=== PATIENT | male | born 1945 | race Caucasian/White ===

== ENCOUNTER 2017-09-13 01:47 | Inpatient (IN) | payer OTHER ==
[~2017-09-13] VITALS: Ht 157.5 cm; Wt 68.0 kg
[~2017-09-13 01:47] MED LIST: AMIODARONE HCL200 M2 PO; AMLODIPINE BESY10 M1 PO; ATORVASTATIN CA40 M1 PO; CLOPIDOGREL75 M1 PO; DENAVIR5 GM TOP; DOXYCYCLINE HY100 M2 PO; DOXYCYCLINE HY100 M4 PO; ENALAPRIL MALEA20 M1 PO; METOPROLOL SUC100 M2 PO; PRADAXA150 M1 PO; PREDNISONE10 M2 PO; PROAIR HFA8.5 GM; ZITHROMAX250 M2 PO
--- NOTE | 2017-09-13 02:00 | ED DYSPNEA/ASTHMA COMPLAINT ---
History of Present Illness General Chief Complaint: Dyspnea (COPD, CHF, Other) Stated Complaint: DYSPNEA Source: patient, old records, EMS Exam Limitations: no limitations Vital Signs & Intake/Output Vital Signs & Intake/Output Vital Signs Date Time Temp Pulse Resp B/P B/P Pulse O2 O2 Flow FiO2 Mean Ox Delivery Rate 09/13 0238 Nasal 2.0L Cannula 09/13 0204 88 Nasal 3.0L Cannula 09/13 0158 97.3 53 24 173/72 95 Nasal 3.5L Cannula Allergies Coded Allergies: Sulfa (Sulfonamide Antibiotics) (HIVES 09/11/17) Reconcile Medications Albuterol Sulfate (Proair Hfa) (Unknown Strength) HFA.AER.AD (Unknown Dose) UNKNOWN (Reported) Amiodarone HCl 200 MG TABLET 1 TAB PO DAILY HEART (Reported) Amlodipine Besylate 10 MG TABLET 1 TAB PO DAILY BP (Reported) Atorvastatin Calcium 40 MG TABLET 1 TAB PO DAILY CHOLESTEROL (Reported) Azithromycin (Zithromax) 250 MG TABLET 1 DP PO AD BRONCHITIS 2 the first day followed by 1 for days 2-5 Clopidogrel Bisulfate (Clopidogrel) 75 MG TABLET 1 TAB PO DAILY BLOOD THINNER (Reported) Dabigatran Etexilate Mesylate (Pradaxa 150 MG) 150 MG CAPSULE 1 CAP PO BID BLOOD THINNER (Reported) Doxycycline Hyclate 100 MG CAPSULE 1 CAP PO BID ANTIBIOTIC (Reported) Doxycycline Hyclate (Unknown Strength) TABLET (Unknown Dose) PO AD ANTIBIOTIC (Reported) Enalapril Maleate 20 MG TABLET 1 TAB PO DAILY BP (Reported) Metoprolol Succinate 100 MG TAB.ER.24H 1 TAB PO DAILY HEART/BP (Reported) Penciclovir (Denavir) 1 % CREAM..G. 1 KALLIE TOP AD ANTIVIRAL (Reported) Prednisone 10 MG TABLET 1 TAB PO DAILY BRONCHITIS TAKE 3 TABS FOR 3 DAYS THEN TAKE 2 TABS FOR 3 DAYS THEN TAKE 1 TAB FOR 3 DAYS Triage Nurses Notes Reviewed? yes Onset: Gradual Duration: day(s): Timing: recent history Severity: moderate Activities at Onset: none Prior Episodes/Possible Cause: occasional episodes Modifying Factors: Improves With: rest. Associated Symptoms: cough, wheezing HPI: 72 yo gentleman h/o cigarette smoking, h/o [place], vasculopthy, presents with dyspnea. He was seen in the ED 2 days ago, was given steroids and zithromycin. He was unable to fill the antiobiotics, but was able to take the steroids. He notes that for the past day, he has had increased dyspnea, wheezing, breathlessness, with sputum for the past evening, which got worse tonight. Past History Travel History Traveled to [place] past 21 day No Medical History Any Pertinent Medical History? 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 No Review of Systems Review of Systems Constitutional: Reports: no symptoms. EENTM: Reports: no symptoms. Respiratory: Reports: no symptoms. Cardiovascular: Reports: no symptoms. GI: Reports: no symptoms. Genitourinary: Reports: no symptoms. Musculoskeletal: Reports: no symptoms. Skin: Reports: no symptoms. Neurological/Psychological: Reports: no symptoms. Hematologic/Endocrine: Reports: no symptoms. Immunologic/Allergic: Reports: no symptoms. All Other Systems: Reviewed and Negative Physical Exam Physical Exam General Appearance: well developed/nourished, mild distress Head: atraumatic, normal appearance Eyes: Bilateral: normal appearance. Ears, Nose, Throat: normal pharynx, normal ENT inspection Neck: normal inspection, supple, full range of motion Respiratory: wheezing Cardiovascular: regular rate/rhythm Gastrointestinal: normal bowel sounds, soft, non-tender, no organomegaly Extremities: normal inspection, normal capillary refill, normal range of motion, no edema Neurologic/Psych: no motor/sensory deficits, awake, alert, oriented x 3 Skin: intact, normal color, warm/dry Core Measures ACS in differential dx? Yes No ASA d/t pt written for aspirin CVA/TIA Diagnosis No Sepsis Present: No Sepsis Focused Exam Completed? No Progress Differential Diagnosis: asthma, AMI Plan of Care: Orders Procedure Date/time Status Nothing by Mouth 09/13 B Active Saline Lock 09/13 327 Active Misc Message 09/13 327 Active ED Holding Orders 09/13 327 Active Admit to inpatient 09/13 327 Active Vital Signs 09/13 327 Active Code Status 09/13 327 Active RAPID VIRAL INFLUENZA A 09/13 200 Active BLOOD CULTURE 09/13 199 Active TROPONIN LEVEL 09/13 199 Complete PARTIAL THROMBOPLASTIN TIME 09/13 199 Complete PROTHROMBIN TIME 09/13 199 Complete COMPREHENSIVE METABOLIC PANEL 09/13 199 Complete CBC WITHOUT DIFFERENTIAL 09/13 199 Complete B-TYPE NATRIURETIC PEP (BNP) 09/13 199 Complete EKG 09/13 148 Active Current Medications Sig/Sameera Start time Last Medication Dose Stop Time Status Admin Furosemide 20 MG ONCE ONE 09/13 329 CANr (Lasix) 09/13 330 Furosemide 20 MG ONCE ONE 09/13 329 UNVr (Lasix) 09/13 330 Laboratory Tests 09/13/17208: Anion Gap 13, Estimated GFR 35 L, BUN/Creatinine Ratio 19.5, Glucose 96, Calcium 9.3, Total Bilirubin 0.8, AST 33, ALT 34, Alkaline Phosphatase 114, Troponin I 0.03, Hiq-G-Rlfpmwpgnyz Pept 4530 H, Total Protein 7.7, Albumin 4.1, Globulin 3.6, Albumin/Globulin Ratio 1.1, PT 17.8 H, INR 1.70 H, APTT 75 H, CBC w Diff NO MAN DIFF REQ, RBC 4.35 L, MCV 93.2, MCH 31.5 H, RDW 15.1 H, MPV 8.8, Gran % 73.2, Lymphocytes % 14.6 L, Monocytes % 8.9, Eosinophils % 1.9, Basophils % 1.4, Absolute Granulocytes 8.1 H, Absolute Lymphocytes 1.6, Absolute Monocytes 1.0 H, Absolute Eosinophils 0.2, Absolute Basophils 0.2, PUBS MCHC 33.8 Microbiology 09/13 258 BLOOD: Blood Culture - RECD 09/13 225 BLOOD: Blood Culture - RECD 09/13 200 NASOPHARYN: Influenza Virus A & B Rapid Smear - ORD Diagnostic Imaging: Viewed by Me: Radiology Read. Discussed w/RAD: Radiology Read. CXR Impression: PATIENT: SUNITHA MARIE PRESENT AGE: 72 PATIENT ACCOUNT NO: [id number] : 44 LOCATION: [facility] ORDERING PHYSICIAN: Marvin Martines MD SERVICE DATE: 09/13/17 EXAM TYPE: RAD - XRY- PORTABLE CHEST XRAY EXAMINATION: XR PORTABLE CHEST CLINICAL INFORMATION: Dyspnea COMPARISON: 09/11/2017 TECHNIQUE: Portable frontal view of the chest was obtained. FINDINGS: Lung volumes are symmetric. There is redemonstrated interstitial prominence and Sia B-lines, suspicious for interstitial edema which is similar in appearance to prior. No definite consolidation is identified. No pneumothorax is seen. Trace pleural effusions cannot be excluded. The cardiac silhouette remains prominent. Calcification is present at the aortic arch. No acute osseous findings are seen. IMPRESSION: Findings suspicious for interstitial edema, similar to 09/11/2017. DICTATED BY: Rik Molina MD DATE/ TIME DICTATED:09/13/17308 WASHATERIA ATTENDANT:ALYSON DATE/TIME TRANSCRIBED: 09/13/17308 CONFIDENTIAL, DO NOT COPY WITHOUT APPROPRIATE AUTHORIZATION. < Electronically signed in Other Vendor System> SIGNED BY: Rik Molina MD 09/13/17313 Initial ED EKG: non specific t wave changes. Departure Departure Disposition: STILL A PATIENT Condition: Stable Clinical Impression Primary Impression: COPD exacerbation Secondary Impressions: Chest pain, CHF (congestive heart failure) Referrals: Ricky Bradley MD (PCP/Family) Departure Forms: Customer Survey General Discharge Information Admission Note Spoke With: Nieves Peoples MD Documentation of Exam: Documentation of any treatments & extenuating circumstances including Concerns Regarding Discharge (functional status, medication knowledge or non-compliance, living conditions, etc.) that warrant an admission rather than observation: pt with copd, pneumonia, unstable angina vs other... pt hypoxic upon presentation, unsuccessful with outpatient management.... merits iv abx, iv steroids, nebs... pt's presentation is more consistent with copd than chf... however given elevated bnp and edema on cxr, will give lasix x1 and have team re -assess. Critical Care Note Critical Care Note Critical Care Time: non-applicable
[2017-09-13 02:16] LABS: ABSOLUTE BASOPHIL COUNT 0.2 /CUMM (0.0-0.2); ABSOLUTE EOSINOPHIL COUNT 0.2 /CUMM (0.0-0.7); ABSOLUTE GRANULOCYTE CT 8.1 /CUMM (1.4-6.5); ABSOLUTE LYMPH COUNT 1.6 /CUMM (1.2-3.4); BASOPHIL % 1.4 % (0.0-2.0); EOSINOPHIL % 1.9 % (0-5); GRANULOCYTE % 73.2 % (42.2-75.2); HEMATOCRIT 40.6 % (42-52); MEAN CORPUSCULAR HGB 31.5 PG (27.0-31.0); MEAN CORPUSCULAR HGB CONC 33.8 G/DL (33.0-37.0); MEAN CORPUSCULAR VOLUME 93.2 FL (80.0-94.0); MEAN PLATELET VOLUME 8.8 FL (7.4-10.4); PLATELET COUNT 339 /CUMM (130-400); RBC DISTRIBUTION WIDTH 15.1 % (11.5-14.5); RED BLOOD CELL CT 4.35 /CUMM (4.70-6.10); WHITE BLOOD CELL COUNT 11.1 /CUMM (4.8-10.8)
[2017-09-13 02:31] LABS: PT 17.8 SEC (9.4-12.5); PTT 75 SEC (25-37)
--- NOTE | 2017-09-13 03:14 | RADIOLOGY REPORT ---
EXAMINATION: XR PORTABLE CHEST CLINICAL INFORMATION: Dyspnea COMPARISON: 09/11/2017 TECHNIQUE: Portable frontal view of the chest was obtained. FINDINGS: Lung volumes are symmetric. There is redemonstrated interstitial prominence and Sia B-lines, suspicious for interstitial edema which is similar in appearance to prior. No definite consolidation is identified. No pneumothorax is seen. Trace pleural effusions cannot be excluded. The cardiac silhouette remains prominent. Calcification is present at the aortic arch. No acute osseous findings are seen. IMPRESSION: Findings suspicious for interstitial edema, similar to 09/11/2017.
--- NOTE | 2017-09-13 05:04 | History & Physical ---
John STROUD,[facility] 09/13/17 0504: General Information and HPI MD Statement: I have seen and personally examined SUNITHA MARIE and documented this H&P. The patient is a 72 year old M who presented with a patient stated chief complaint of [worsening cough and shortness of breath]. Source of Information: patient Exam Limitations: poor historian History of Present Illness: Mr. marie is a 72-year-old gentleman with past medical history significant for hypertension, hyperlipidemia, peripheral vascular disease s/p angiography and left sided stent pleacement, subclavian stents, carotid endarterectomy(right side 2000, left side 2015), [place] status post CABG stent placement, COPD(not on home oxygen) and atrial fibrillation(on aspirin and Plavix) presents to the [place] ER with worsening cough and shortness of breath. According to the patient, she has had chronic shortness of breath that has been going on for couple of months but has worsened recently, states he feels chest tightness and feels like he is unable to breathe, along with worsening cough and sputum production. He was seen in the ER on September 11 for similar symptoms and was discharged home on prednisone and antibiotics which she has been taking without any relief. Denies any fever but have occasional chills. Also reports occasional palpitations but denies any chest pain, orthopnea, PND, worsening leg swelling or recent increase in body weight. Patient had an extensive workup done at [facility] for shortness of breath and also peripheral vascular disease in April 2017. Allergies/Medications Allergies: Coded Allergies: Sulfa (Sulfonamide Antibiotics) (HIVES 09/11/17) Home Med list Amiodarone HCl 200 MG TABLET 1 TAB PO DAILY HEART (Reported) Amlodipine Besylate 10 MG TABLET 1 TAB PO DAILY BP (Reported) Atorvastatin Calcium 40 MG TABLET 1 TAB PO DAILY CHOLESTEROL (Reported) Dabigatran Etexilate Mesylate (Pradaxa 150 MG) 150 MG CAPSULE 1 CAP PO BID BLOOD THINNER (Reported) Enalapril Maleate 20 MG TABLET 1 TAB PO DAILY BP (Reported) Metoprolol Succinate 100 MG TAB.ER.24H 1 TAB PO DAILY HEART/BP (Reported) Past History Travel History Traveled to [place] past 21 day No Medical History Neurological: NONE EENT: NONE Cardiovascular: AFIB, CAD, hypertension, hyperlipidemia, PVD, [place]/STENTS Respiratory: COPD Gastrointestinal: HERNIA Hepatic: NONE Renal: NONE Musculoskeletal: NONE Psychiatric: NONE Endocrine: NONE Blood Disorders: NONE Cancer(s): NONE 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 Home Who Do You Live With? spouse Smoking Status: Current Everyday Smoker ETOH Use: occasional use Illicit Drug Use: denies illicit drug use Functional Ability ADLs Independent: dressing, eating, toileting, bathing. Ambulation: independent Review of Systems Review of Systems Constitutional: Reports: no symptoms. EENTM: Reports: no symptoms. Cardiovascular: Reports: no symptoms. Respiratory: Reports: cough, short of breath, sputum production. GI: Reports: no symptoms. Genitourinary: Reports: no symptoms. Musculoskeletal: Reports: no symptoms. Skin: Reports: no symptoms. Neurological/Psychological: Reports: no symptoms. Hematologic/Endocrine: Reports: no symptoms. Immunologic/Allergic: Reports: no symptoms. All Other Systems: Reviewed and Negative Exam & Diagnostic Data Last 24 Hrs of Vital Signs/I&O Vital Signs Date Time Temp Pulse Resp B/P B/P Pulse O2 O2 Flow FiO2 Mean Ox Delivery Rate 09/13 0330 97.8 54 20 130/58 93 Nasal 4.0L Cannula 09/13 0238 Nasal 2.0L Cannula 09/13 0204 88 Nasal 3.0L Cannula 09/13 0158 97.3 53 24 173/72 95 Nasal 3.5L Cannula Intake & Output 09/13 0800 09/13 0000 09/12 1600 Intake Total Output Total Balance Patient 150 lb Weight Weight Reported by Patient Measurement Method Physical Exam General Appearance Alert, Oriented X3, Cooperative, No Acute Distress Skin No Rashes, No Breakdown HEENT Atraumatic, PERRLA, EOMI Neck Supple, No thryomegaly, +ve JVD Cardiovascular Regular Rate, Normal S1, Normal S2, Bradycardic Lungs Wheezing over bilateral lung graf Abdomen Normal Bowel Sounds, Soft, No Tenderness, Umbilical Hernia Extremities No Clubbing, No Cyanosis, Normal Pulses, Bilateral +2 pitting edema extending up the knees Vascular Normal Pulses Last 24 Hrs of Labs/Aureliano: Laboratory Tests 09/13/17 0209: Anion Gap 13, Estimated GFR 35 L, BUN/Creatinine Ratio 19.5, Glucose 96, Calcium 9.3, Total Bilirubin 0.8, AST 33, ALT 34, Alkaline Phosphatase 114, Troponin I 0.03, Prk-V-Xjmxlmczfpo Pept 4530 H, Total Protein 7.7, Albumin 4.1, Globulin 3.6, Albumin/Globulin Ratio 1.1, PT 17.8 H, INR 1.70 H, APTT 75 H, CBC w Diff NO MAN DIFF REQ, RBC 4.35 L, MCV 93.2, MCH 31.5 H, RDW 15.1 H, MPV 8.8, Gran % 73.2, Lymphocytes % 14.6 L, Monocytes % 8.9, Eosinophils % 1.9, Basophils % 1.4, Absolute Granulocytes 8.1 H, Absolute Lymphocytes 1.6, Absolute Monocytes 1.0 H, Absolute Eosinophils 0.2, Absolute Basophils 0.2, PUBS MCHC 33.8 Microbiology 09/13 258 BLOOD: Blood Culture - RECD 09/13 225 BLOOD: Blood Culture - RECD 09/13 200 NASOPHARYN: Influenza Virus A & B Rapid Smear - ORD Diagnostic Data EKG Results Sinus bradycardia Heart rate 52 QTC 469 CXR Results Lung volumes are symmetric. There is redemonstrated interstitial prominence and Sia B-lines, suspicious for interstitial edema which is similar in appearance to prior. No definite consolidation is identified. No pneumothorax is seen. Trace pleural effusions cannot be excluded. Assessment/Plan Assessment: Mr. marie is a 72-year-old gentleman with past medical history significant for hypertension, hyperlipidemia, peripheral vascular disease, subclavian stents, carotid endarterectomy(right side 2000, left side 2015), [place] status post CABG stent placement, COPD(not on home oxygen) and atrial fibrillation(on aspirin and Plavix) presents to the [place] ER with worsening cough and shortness of breath. A/P; 1. Shortness of breath; could be multifactorial from CHF(patient has a proBNP level of 4530, positive JVD and chest x-ray showing interstitial edema) and COPD Exacerbation(current everyday smoker, wheezing on examination and worsening cough with sputum production). - We will admit the patient to telemetry floor - Start the patient on IV Solu-Medrol 40 mg every 12 hours. - Start the patient on IV azithromycin. - TRC nebs as needed - Supplemental oxygen as needed. -Patient received 1 dose of IV Lasix 20 mg in the ER. Patient has a creatinine level of 1.9(unsure about baseline creatinine). Reassess creatinine in a.m. for continuing IV Lasix. - f/u Echocardiogram - Cardiology consult in a.m. 2. Creatine level of 1.9; Had same creatinine level on September 11. - Resume Lasix in a.m. if no worsening of creatinine on repeated labs. - Urine lytes and FeNa. - Hold enalapril - Avoid nephrotoxic medications. 3. History of atrial fibrillation; - Continue amiodarone. - Hold metoprolol for now. (Patient bradycardic to 52) - Continue aspirin and Pradaxa. - Cardiology consult in a.m. 4. Hypertension and hyperlipidemia; - Holding metoprolol and enalapril for now because of bradycardia and abnormal creatinine levels respectively. - Continue amlodipine. - Continue atorvastatin 40 mg daily. DVT prophylaxis; patient is on Pradaxa Patient is full code As Ranked By This Provider Problem List: 1. COPD exacerbation 2. Dyspnea 3. CHF (congestive heart failure) Core Measures/Misc (05/09) Acute Coronary Syndrome ACS Diagnosis: No Congestive Heart Failure Congestive Heart Failure Diagnosis Yes Cerebrovascular Accident CVA/TIA Diagnosis: No VTE (View Protocol) VTE Risk Factors Age>40 No Mechanical VTE Prophylaxis d/t N/A MechProphylax Ordered No VTE Pharm Prophylaxis d/t NA PharmProphylax ordered Sepsis (View protocol) Sepsis Present: No Nani Perez MD 09/13/17 0610: Resident Review Statement Resident Statement: examined this patient, discussed with industrial design intern, agreed with industrial design intern Other Findings: This is a 71-year-old male w/ PMH significant for CAD status post FL at age 39, with history of bypass and stents, vasculopathy status post right lower extremity stent and bilateral CEA, atrial fibrillation on NOAC, hypertension, and hyperlipidemia, who comes in for chief complaint of shortness of breath. Patient has a difficult time his acute from his chronic symptoms. However, he states that the last 1 week he seems to notice worsening shortness of breath, cough and congestion. He was seen in [place] ED on September 11 after going to [facility]'s walk-in and found to be with low O2 sat (he is unaware of value), and was sent to [facility] ED for further evaluation. Here he was found to have an ambulatory saturation of 92 with some shortness of breath he was prescribed antibiotics and steroids and discharged. He stated his pharmacy did not have prednisone but he has finished a one-week course of amoxicillin previously prescribed by his PCP but his symptoms have not improved. He still wakes up gasping for air. He sleeps with one pillow at night, he has not added any more, however he states his symptoms improved with sitting. He also endorses chest tightness for 1 week. He says it's more of a pressure sensation in the center of his chest. He also notes worsening exertional dyspnea and intermittent palpitations. Last Wednesday he describes an episode where he suddenly lost hearing, experienced nausea and had an episode of intense shortness of breath. He says that episode scared him and subsequently he has been seeking medical care for his shortness of breath. On further history, he states that he has noted worsening dyspnea, decreased endurance, and increasing shortness of breath since last April. Over the last week his cough congestion and shortness of breath seems different from his chronic symptoms. Social history significant for 45-pyns-oyof smoking, he still currently smokes up to 15 cigarettes a day. He endorses rare recreational use of alcohol and no IV drug abuse. 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 Vitals: 97.3, heart rate 53-54, respiratory rate 20-24, blood pressure 130/58 to 173/72, satting 88-95%. HEENT: Pupils equal and reactive. EOMI Cardiovascular: Nml s1/s2; no murmurs, bradycardia. No S3 appreciated. +JVD Skin: no erythema, rash or wounds present. Respiratory:He had diminished breath sounds with slight wheezes at bases. There were some crackles and rhonchi present as well. GI: BSX4, No tenderness on palpation. EXT: 2+ pitting edema. he has healing ulcers on l. great toe. R. great toe with some chronic changes. Good palpable pulses bilat LE. Assessment: This is a 72-year-old male w/ past medical history significant for CAD, vasculopathy, atrial fibrillation, hypertension, hyperlipidemia, who comes in for a one-week complaint of shortness of breath, chest tightness, congestion and cough above his usual chronic shortness of breath and dyspnea on exertion. His x-ray shows evidence of Sia B lines, interstitial edema, he has positive JVD and crackles, and rhonchi in lungs. These are suggestive of heart failure. However, he does have significant smoking history and wheezes can be auscultated. Cannot rule out COPD. At this time will treat patient is a combination of CHF and COPD and given his prominent history of CAD will obtain EKG and trops as we monitor on telemetry floor. 1. Shortness of breath: Patient shortness of breath is likely multifactorial. It sounds like he has an acute on top of a chronic shortness of breath. Differential diagnosis favors acute shortness of breath includes worsening CHF, superimposed viral illness, COPD exacerbation. His chronic SOB could be 2/2 to HF, COPD, Amiodarone assoc pulm sfx. BNP 4530 * TRC * Steroids * Echocardiogram * Monitor on telemetry * EKG and troponins * Hold beta irene * 1 times Lasix in ED; reevaluate Lasix regimen given his creatinine * Flu swab 2. Bradycardia: as I was interviewing patient here heart rate as low as 48. His EKG shows NSR with rate 52. He was awake alert and speaking with me. He says he does not have a known history of bradycardia, rather he usually has fast heart rate. He is on a beta irene and amiodarone. * Holding beta irene * Continue amiodarone 3. Elevated creatinine: Unsure of his baseline so don't know if this is CLAUDIO or CK D. Note that on September 11 patient had creatinine of 1.9. Suspect chronic. * Urine lytes * FeNa * Hold lisinopril * Administer Lasix with caution * Avoid NSAIDs and nephrotoxins 4. Atrial Fibrillation: Patient is in NSR at this time. * Continue amiodarone * Continue Pradaxa 5. CAD: She has significant history of CAD and vasculopathy. * EKG and drops 3 * Continue Lipitor 40 mg daily * Holding Toprol-XL 100 mg daily 6. Hypertension: * Continue Vasotec * Continue Norvasc
--- NOTE | 2017-09-13 06:15 | PN- Att Addend ---
Attending Addendum Attending Brief Note CC: Acute worsening of shortness of breath PMH: CAD S/P [place] S/P CABG, S/P stent, peripheral vascular disease S/P angiography , bilateral CEA, A. fib, HTN, HLD Patient has extensive cardiac history and vasculopath presented in ER for worsening shortness of breath, cough. Patient was seen in ER on September 11, productive cough, worsening breathing, chest pain chest tightness. 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 Patient endorses significant leg swellings recently, lies down flat on one pillow but feels much better in the sitting position, making the middle of the night getting shortness of breath. is sick with URI. Extensive smoking history but never diagnosed to have COPD, does not use any nebulization her oxygen at home. In ER he was afebrile, pulse in 50s, her 20s, blood pressure stable saturating 95% on 3 L nasal cannula, coarse on auscultation with crackles, leg edema present, JVD present, mild wheezing present. Patient has mild leukocytosis, creatinine 1.9 no comparison, mildly elevated proBNP but again no comparison available, troponin 0.03. Chest x-ray suggestive of interstitial edema. Patient received IV 20 mg Lasix in ER, Solu- Medrol, nebulization treatment. It appears that patient has acute on chronic heart failure, underlying COPD with mild exacerbation precipitated by URI symptoms. + Acute on chronic congestive heart failure with unknown ejection fraction + Suspected COPD with exacerbation with URI + History of CAD S/P [place] S/P CABG, S/P stent, peripheral vascular disease S/P angiography, bilateral CEA, A. fib, HTN, HLD - Admit to telemetry - Continuous telemetry monitoring - Continue O2 by nasal cannula try to wean off - Repeat BMP in a.m. to reassess for IV Lasix - Strict I's and O's - Daily weights - Serial troponin and EKGs - 2-D echo in a.m. - Cardiology consult in a.m. - DVT prophylaxis - Hold metoprolol given his bradycardia - Continue rest of his home medications - Continue IV methylprednisolone 40 mg every 12 hours - IV azithromycin - Scheduled and when necessary nebulization with albuterol and ipratropium
--- NOTE | 2017-09-13 06:15 | Admission Certification ---
Admission Certification Certification Statement - As attending physician, I certify that at the time of - admission, based on clinical presentation, severity of - symptoms, need for further diagnostic testing and - therapeutic interventions, and risk of adverse outcomes - without in-hospital treatment, in my clinical assessment, - this patient requires an acute hospital stay for a minimum - of two nights or longer. I have also considered psychsocial - factors such as support system, advanced age, financial - issues, cognitive issues, and failed out-patient treatments, - past re-admission history, safety of patient, and lack of - compliance as applicable. Specific rationale supporting this admission is: Acute on chronic congestive heart failure, suspected COPD
[2017-09-13 06:38] VITALS: BP 106/50
--- NOTE | 2017-09-13 08:44 | PN- Housestaff ---
Jason Fam 09/13/17 0844: Subjective Follow-up For: Acute on chronic CHF COPD exacerbation Acute bronchitis AK I on CKD History of A. fib Complaints: no complaints Tele-Events Since Last Visit: No telemetry events noticeable. Atrial fibrillation, rate controlled, varying between 50-60, ventricular premature complexes Subjective: Patient was seen and examined. He is alert awake and oriented to time place and person. No acute events noticed overnight. He reports mild shortness of breath associated with cough. Denied any sputum production. No fever, chills. He denies any chest pain or tightness, palpitations, abdominal pain, nausea, vomiting or flank pain. Urine output was adequate. No urinary symptoms. Vitals stable, afebrile, heart rate 60, respiratory rate 18, blood pressure 120/ 70, saturating at 93 on 3 L. Review of Systems Constitutional: Reports: see HPI. Objective Last 24 Hrs of Vital Signs/I&O Vital Signs Date Time Temp Pulse Resp B/P B/P Pulse O2 O2 Flow FiO2 Mean Ox Delivery Rate 09/13 0935 65 114/56 09/13 0935 65 114/56 09/13 0800 92 Room Air Room Air 09/13 0638 97.8 77 18 106/50 94 Nasal 4.0L Cannula 09/13 0600 Nasal 4.0L Cannula 09/13 0534 97.1 50 20 127/71 93 Nasal 4.0L Cannula 09/13 0330 97.8 54 20 130/58 93 Nasal 4.0L Cannula 09/13 0238 Nasal 2.0L Cannula 09/13 0204 88 Nasal 3.0L Cannula 09/13 0158 97.3 53 24 173/72 95 Nasal 3.5L Cannula Intake & Output 09/13 1600 09/13 0800 09/13 0000 Intake Total Output Total 300 300 Balance -300 -300 Output, Urine 300 300 Patient 68.039 kg Weight Weight Reported by Patient Measurement Method Physical Exam General Appearance: Alert, Oriented X3, Cooperative, No Acute Distress Other Physical Findings: HEENT: Pupils equal and reactive. EOMI Cardiovascular: Nml s1/s2; no murmurs, bradycardia. No S3 appreciated. +JVD Skin: no erythema, rash or wounds present. Respiratory:He had diminished breath sounds with slight wheezes at bases. There were some crackles and rhonchi present as well. GI: BSX4, No tenderness on palpation. EXT: 2+ pitting edema. he has healing ulcers on l. great toe. R. great toe with some chronic changes. Good palpable pulses bilat LE. Current Medications: Current Medications Sig/Sameera Start time Last Medication Dose Route Stop Time Status Admin Acetaminophen 650 MG Q6P PRN 09/13 0545 AC PO Acetaminophen 1,000 MG Q6P PRN 09/13 0545 AC IV Albuterol Sulfate 3 ML ONCE ONE 09/13 0200 DC 09/13 INH 09/13 020 0203 Amiodarone HCl 200 MG DAILY 09/13 1000 AC 09/13 PO 0935 Amlodipine Besylate 10 MG DAILY 09/13 1000 AC 09/13 PO 0935 Aspirin 81 MG ONCE ONE 09/13 0345 DC 09/13 PO 09/13 034 0342 Aspirin 0 .STK-MED ONE 09/13 0339 DC PO Atorvastatin Calcium 40 MG 1700 09/13 1700 AC PO Azithromycin 500 MG DAILY 09/13 1000 AC Dextrose/Water 250 ML IV Azithromycin 500 MG ONCE ONE 09/13 0200 DC 09/13 Sodium Chloride 250 ML IV 09/13 025 0310 Ceftriaxone Sodium 0 .STK-MED ONE 09/13 0252 DC .ROUTE Ceftriaxone Sodium 1,000 MG ONCE ONE 09/13 0200 DC 09/13 IV 09/13 020 0309 Dabigatran 150 MG BID 09/13 1000 AC 09/13 PO 0934 Furosemide 20 MG DAILY 09/13 1000 AC PO Furosemide 0 .STK-MED ONE 09/13 0338 DC IV Furosemide 20 MG ONCE ONE 09/13 0330 CAN IV 09/13 0331 Furosemide 20 MG ONCE ONE 09/13 0330 DC 09/13 IV 09/13 033 0342 Ipratropium Jarrell 2.5 ML ONCE ONE 09/13 0200 DC 09/13 INH 09/13 020 0203 Methylprednisolone 40 MG Q8 09/13 1400 AC IV Methylprednisolone 40 MG Q6 09/13 1200 DC IV Methylprednisolone 0 .STK-MED ONE 09/13 0216 DC .ROUTE Methylprednisolone 125 MG ONCE ONE 09/13 0200 DC 09/13 IV 09/13 020 0229 Metoprolol Succinate 100 MG DAILY 09/13 1000 AC PO Nicotine 21 MG DAILY 09/13 1000 AC 09/13 TOP 0934 Ondansetron HCl 4 MG Q6P PRN 09/13 0545 AC IV Oxycodone/ 2 TAB Q6P PRN 09/13 0545 AC Acetaminophen PO Last 24 Hrs of Lab/Aureliano Results Last 24 Hrs of Labs/Mics: Laboratory Tests 09/13/17 0830: Sodium Cancelled, Potassium Cancelled, Chloride Cancelled, Carbon Dioxide Cancelled, Anion Gap Cancelled, BUN Cancelled, Creatinine Cancelled, BUN/ Creatinine Ratio Cancelled 09/13/17 0830: Sodium Pending, Potassium Pending, Chloride Pending, Carbon Dioxide Pending, Anion Gap Pending, BUN Pending, Creatinine Pending, BUN/Creatinine Ratio Pending , Troponin I Pending, TSH Pending, Free T4 Pending, CBC w Diff Pending, WBC Pending, RBC Pending, Hgb Pending, Hct Pending, MCV Pending, MCH Pending, RDW Pending, Plt Count Pending, MPV Pending, PUBS MCHC Pending 09/13/17 0810: Urine Color YEL, Urine Clarity CLEAR, Urine pH 6.0, Ur Specific Warriors Mark 1.025, Urine Protein 100 H, Urine Ketones NEG, Urine Nitrite NEG, Urine Bilirubin NEG, Urine Urobilinogen 0.2, Ur Leukocyte Esterase NEG, Ur Microscopic SEDIMENT EXAMINED, Urine RBC RARE, Urine WBC 1-3 H, Urine Bacteria RARE H, Urine Hemoglobin NEG, Urine Glucose NEG 09/13/17 0810: Ur Random Creatinine 33.1, Ur Random Sodium 105 H, Ur Random Potassium 29.1, Fraction Sodium Excret 4.3 H 09/13/17 0209: Anion Gap 13, Estimated GFR 35 L, BUN/Creatinine Ratio 19.5, Glucose 96, Calcium 9.3, Total Bilirubin 0.8, AST 33, ALT 34, Alkaline Phosphatase 114, Troponin I 0.03, Wpn-J-Dnifsjadwaz Pept 4530 H, Total Protein 7.7, Albumin 4.1, Globulin 3.6, Albumin/Globulin Ratio 1.1, PT 17.8 H, INR 1.70 H, APTT 75 H, CBC w Diff NO MAN DIFF REQ, RBC 4.35 L, MCV 93.2, MCH 31.5 H, RDW 15.1 H, MPV 8.8, Gran % 73.2, Lymphocytes % 14.6 L, Monocytes % 8.9, Eosinophils % 1.9, Basophils % 1.4, Absolute Granulocytes 8.1 H, Absolute Lymphocytes 1.6, Absolute Monocytes 1.0 H, Absolute Eosinophils 0.2, Absolute Basophils 0.2, PUBS MCHC 33.8 Microbiology 09/13 0259 BLOOD: Blood Culture - RECD 09/13 225 BLOOD: Blood Culture - RECD 09/13 200 NASOPHARYN: Influenza Virus A & B Rapid Smear - COLB Assessment/Plan Assessment: This is a 71-year-old male w/ PMH significant for CAD status post DC at age 39, with history of bypass and stents, vasculopathy status post right lower extremity stent and bilateral CEA, atrial fibrillation on NOAC, hypertension, and hyperlipidemia, who comes in for chief complaint of shortness of breath. Vitals: 97.3, heart rate 53-54, respiratory rate 20-24, blood pressure 130/58 to 173/72, satting 88-95%. Pertinent labs leukocytosis 11.1, hemoglobin 13, platelets normal, creatinine 1.9, proBNP 4530, troponin normal. Chest x-ray findings suggestive of interstitial edema. EKG atrial fibrillation, rate 73, premature ventricular complexes. - Acute on chronic CHF Patient shortness of breath is likely multifactorial. It sounds like he has an acute on top of a chronic shortness of breath. Differential diagnosis favoring acute shortness of breath includes worsening CHF, superimposed viral illness, COPD exacerbation. His chronic SOB could be 2/2 to HF, COPD, Amiodarone assoc pulm sfx. BNP 4530. * Admitted to telemetry floor for management of heart failure * Given his elevated proBNP, crackles, JVD on exam, chest x-ray findings of interstitial edema will treat him for heart failure * Received 20 mg IV Lasix in the ER. 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 Lazcano was consulted, please follow cardiology recommendations Questionable COPD exacerbation and acute bronchitis Patient has extensive smoking history for 60 years. He is still smoking. Never followed up with any manager traffic. Not sure about COPD history. However given his wheezing, recent sick contact exposure, upper respiratory tract infection, shortness of breath, cough will treat him for acute bronchitis and COPD exacerbation. * IV methylprednisolone 40 mg every 8 * Azithromycin 5 doses * The total respiratory care * Duonebs * Follow-up flu swab * Patient needs outpatient manager traffic follow-up. Bradycardia: heart rate as low as 48 in ER. His EKG showed NSR with rate 52 initially. He says he does not have a known history of bradycardia, rather he usually has fast heart rate. He is on a beta irene and amiodarone. Metoprolol on hold overnight. * Repeat EKG this morning atrial fibrillation, rate 70. * Will continue home medication metoprolol with holding parameters. Elevated creatinine: Unsure of his baseline so don't know if this is CLAUDIO or CK D. Note that on September 11 patient had creatinine of 1.9. Suspect chronic. * Urine lytes-urine sodium 105, creatinine 33, potassium 29 * FeNa 4.3 * Hold lisinopril * Administer Lasix with caution * Avoid NSAIDs and nephrotoxins * Please follow-up renal ultrasound * Monitored ins and outs Atrial Fibrillation: Patient is in NSR at this time. * Continue amiodarone * Continue Pradaxa CAD: She has significant history of CAD and vasculopathy. * EKG and troponin 3 * Continue Lipitor 40 mg daily * Holding Toprol-XL 100 mg daily Hypertension: * Continue Norvasc DVT prophylaxis on Pradaxa Full code Heart healthy diet Problem List: 1. COPD exacerbation 2. CHF (congestive heart failure) Pain Ratin Pain Location: n/a Pain Goal: Remain pain free Pain Plan: tylinol Tomorrow's Labs & Rationales: BEP to monitor creatinine CBCs to monitor WBC count in the setting of acute bronchitis Jose Mcgowan MD 09/13/17 1138: Attending MD Review Statement Attending Statement Attending MD Statement: examined this patient, discuss w/resident/PA/COMMAND AND CONTROL SPECIALIST, agreed w/resident/PA/COMMAND AND CONTROL SPECIALIST, reviewed EMR data (avail), discussed with nursing, discussed with case mgmt, amended to note Attending Assessment/Plan: Patient seen and examined. Presents again for evaluation of shortness of breath has been going on for several weeks. Reports associated leg swelling. Admits to dyspnea on exertion. He had an elevated BNP and chest x-ray findings are suspicious for interstitial edema. He was started on intravenous diuresis and admitted to the inpatient medical service for further management. He is currently resting comfortably and not in acute distress. Reports feeling slightly better. Denies chest pain or shortness of breath at rest. Denies palpitations. He is afebrile hemodynamically stable. General appearance: Not in any distress Neck: No jugular venous distention, bilateral carotid endarterectomy scars Heart: S1-S2 regular no audible murmur Lungs: Good entry bilaterally with no added sounds Abdomen: Soft, nontender with normal bowel sounds. Extremities: Trace pedal edema bilaterally Skin: Intact with no rashes. Problems: 1. Progressive dyspnea on exertion; concerning for congestive heart failure. 2. Chronic kidney disease stage III; patient acknowledges that he has chronic kidney disease. He reports that it is secondary to several contrast loads he has had in the past. 3. Abdominal aortic aneurysm; patient reports that he follows up with a vascular surgery group out of [facility]. He is being managed conservatively. Last follow-up was a week ago. 4. COPD; recently diagnosed 5. Atrial fibrillation; patient reports that his insurance company will no longer approve Pradaxa. He is looking to change his anticoagulant therapy. Plan: -Given his clinical stability and his renal insufficiency I agree with transition the patient to oral diuretic therapy statin with Lasix 20 mg daily for now. Monitor daily weight. Monitor input output. -Follow-up echocardiogram results. -He shows no evidence of bronchospasm at present. I believe he can be transitioned to prednisone 40 mg daily starting today. Continue bronchodilator therapy. Patient will require referral to pulmonology service upon discharge. -Patient wishes to switch his cmm programmer service. He also has questions about starting a new anticoagulant therapy. -Obtain renal ultrasound to rule out obstructive renal disease. -Mobilize patient. -
[2017-09-13 09:49] LABS: ABSOLUTE BASOPHIL COUNT 0 /CUMM (0.0-0.2); ABSOLUTE EOSINOPHIL COUNT 0 /CUMM (0.0-0.7); ABSOLUTE GRANULOCYTE CT 7.3 /CUMM (1.4-6.5); ABSOLUTE LYMPH COUNT 0.4 /CUMM (1.2-3.4); ABSOLUTE MONOCYTE COUNT 0 /CUMM (0.10-0.60); BASOPHIL % 0.2 % (0.0-2.0); EOSINOPHIL % 0 % (0-5); GRANULOCYTE % 94.7 % (42.2-75.2); HEMATOCRIT 37.5 % (42-52); MEAN CORPUSCULAR HGB 30.6 PG (27.0-31.0); MEAN CORPUSCULAR HGB CONC 32.7 G/DL (33.0-37.0); MEAN CORPUSCULAR VOLUME 93.6 FL (80.0-94.0); MEAN PLATELET VOLUME 8.8 FL (7.4-10.4); PLATELET COUNT 295 /CUMM (130-400); RBC DISTRIBUTION WIDTH 14.6 % (11.5-14.5); RED BLOOD CELL CT 4.01 /CUMM (4.70-6.10)
[2017-09-13 10:08] LABS: WHITE BLOOD CELL COUNT 7.8 /CUMM (4.8-10.8)
--- NOTE | 2017-09-13 15:30 | ULTRASOUND REPORT ---
EXAMINATION: US RETROPERITONEAL COMPLETE (RENAL) CLINICAL INFORMATION: Acute kidney injury. Rule out obstruction/stones. COMPARISON: None TECHNIQUE: Real-time imaging of the kidneys and bladder. FINDINGS: RIGHT KIDNEY: 9.1 x 4.4 x 4.4 cm (SAG x AP x TRV). The kidney is normal in size, contour, and echogenicity. Renal cortical thickness is normal. No calculi or focal parenchymal lesions. No hydronephrosis. LEFT KIDNEY: 11.2 x 6.2 x 4.0 cm (SAG x AP x TRV). The kidney is normal in size, contour, and echogenicity. Renal cortical thickness is normal. No focal parenchymal lesions. There is a nonobstructing 0.8 cm calcification in the mid left kidney. No hydronephrosis. BLADDER: Well-distended and normal. Bilateral ureteral jets are not demonstrated. Prevoid bladder volume is 234.3 mL. Postvoid bladder volume was not assessed since the patient was unable to void. OTHER: Prostate gland is partially imaged and appears mildly enlarged and heterogeneous, measuring 4 cm transversely. IMPRESSION: 1. Nonobstructing mid left renal calcification. 2. No other renal calculi. 3. Bladder grossly unremarkable. 4. Mildly enlarged and heterogeneous prostate gland.
--- NOTE | 2017-09-13 16:25 | Patient Discharge Instructions ---
Discharge Instructions General Discharge Information You were seen/treated for: COPD exacerbation Acute on chronic heart failure Special Instructions: Follow up with PCP in one week after discharge. Follow-up with deputy fire marshal in 1 week after discharge Follow up with software requirements engineer in 1 week after discharge Diet Recommended Diet: Heart Healthy Activity Full Activity/No Limits: Yes Acute Coronary Syndrome Inclusion Criteria At DC or during hospital stay patient has or had the following: ACS DIAGNOSIS No Discharge Core Measures Meds if any: Prescribed or Continued at Discharge Meds if any: NOT Prescribed or Continued at Discharge Congestive Heart Failure Inclusion Criteria At DC or during hospital stay patient has or had the following: CHF DIAGNOSIS Yes Discharge Core Measures Meds if any: Prescribed or Continued at Discharge Meds if any: NOT Prescribed or Continued at Discharge Cerebrovascular accident Inclusion Criteria At DC or during hospital stay patient has or had the following: CVA/TIA Diagnosis No Discharge Core Measures Meds if any: Prescribed or Continued at Discharge Meds if any: NOT Prescribed or Continued at Discharge Venous thromboembolism Inclusion Criteria VTE Diagnosis No VTE Type NONE VTE Confirmed by (Test) NONE Discharge Core Measures - Per Current guidelines, there needs to be overlap - treatment for the first 5 days of Warfarin therapy. - If discharged on Warfarin prior to 5 days of - overlap therapy, the patient will need to be - assessed for post discharge needs including - *Post discharge parental anticoagulation - *Warfarin and/or parental anticoagulation education - *Follow up date to check INR post discharge At least 5 days overlap therapy as Inpatient No Meds if any: Prescribed or Continued at Discharge Note: Overlap Therapy is Warfarin and Anticoagulant Meds if any: NOT Prescribed or Continued at Discharge
[2017-09-13 19:02] VITALS: BP 108/54
[2017-09-13 22:00] VITALS: BP 112/62
[2017-09-14 07:39] VITALS: BP 120/66
[2017-09-14 07:51] LABS: ABSOLUTE BASOPHIL COUNT 0 /CUMM (0.0-0.2); ABSOLUTE EOSINOPHIL COUNT 0 /CUMM (0.0-0.7); ABSOLUTE GRANULOCYTE CT 9.8 /CUMM (1.4-6.5); ABSOLUTE LYMPH COUNT 0.5 /CUMM (1.2-3.4); ABSOLUTE MONOCYTE COUNT 0.5 /CUMM (0.10-0.60); BASOPHIL % 0 % (0.0-2.0); EOSINOPHIL % 0 % (0-5); HEMATOCRIT 33.3 % (42-52); MEAN CORPUSCULAR HGB 31.3 PG (27.0-31.0); MEAN CORPUSCULAR HGB CONC 33.4 G/DL (33.0-37.0); MEAN CORPUSCULAR VOLUME 93.9 FL (80.0-94.0); MEAN PLATELET VOLUME 8.9 FL (7.4-10.4); PLATELET COUNT 246 /CUMM (130-400); RBC DISTRIBUTION WIDTH 14.6 % (11.5-14.5); RED BLOOD CELL CT 3.55 /CUMM (4.70-6.10); WHITE BLOOD CELL COUNT 10.8 /CUMM (4.8-10.8)
--- NOTE | 2017-09-14 08:50 | PN- Housestaff ---
See Addendum Subjective Follow-up For: Acute on chronic CHF COPD exacerbation Acute bronchitis AK I on CKD History of A. fib Complaints: no complaints Tele-Events Since Last Visit: Sinus bradycardia, sinus rhythm, 40-49, PAC, PVC Subjective: Patient was seen and examined. He is alert awake and oriented to time place and person. No acute events noticed overnight. Denied any sob, cough, sputum production. No fever, chills. He denies any chest pain or tightness, palpitations, abdominal pain, nausea, vomiting or flank pain. Urine output was adequate. No urinary symptoms. Vitals stable, afebrile, heart rate 45, respiratory rate 18, blood pressure 120/ 70, saturating at 93 on 2L. Review of Systems Constitutional: Reports: see HPI. Objective Last 24 Hrs of Vital Signs/I&O Vital Signs Date Time Temp Pulse Resp B/P B/P Pulse O2 O2 Flow FiO2 Mean Ox Delivery Rate 09/14 1451 97.1 46 20 122/62 91 Room Air 09/14 0935 49 120/66 09/14 0935 51 120/66 09/14 0739 97.6 46 20 120/66 91 Nasal Cannula 09/14 0000 90 Nasal 2.0L Cannula 09/13 2200 98.1 49 20 112/62 90 Nasal 2.0L Cannula 09/13 1902 98.3 54 22 108/54 88 Room Air 09/13 1600 Room Air Intake & Output 09/14 1600 09/14 0800 09/14 0000 Intake Total 700 150 240 Output Total 450 225 Balance 250 150 15 Intake, IV 250 Intake, Oral 450 150 240 Number 0 Bowel Movements Output, Urine 450 225 Physical Exam General Appearance: Alert, Oriented X3, Cooperative, No Acute Distress Other Physical Findings: HEENT: Pupils equal and reactive. EOMI Cardiovascular: Nml s1/s2; no murmurs, bradycardia. No S3 appreciated. +JVD Skin: no erythema, rash or wounds present. Respiratory:He had diminished breath sounds with slight wheezes at bases. There were some crackles and rhonchi present as well. GI: BSX4, No tenderness on palpation. EXT: 2+ pitting edema. he has healing ulcers on l. great toe. R. great toe with some chronic changes. Good palpable pulses bilat LE. Current Medications: Current Medications Sig/Sameera Start time Last Medication Dose Route Stop Time Status Admin Acetaminophen 650 MG Q6P PRN 09/13 0545 AC PO Acetaminophen 1,000 MG Q6P PRN 09/13 0545 AC IV Albuterol Sulfate 3 ML BID 09/14 2200 AC 09/14 INH 1442 Albuterol Sulfate 3 ML Q6P PRN 09/13 1500 AC INH Amiodarone HCl 200 MG DAILY 09/13 1000 AC 09/14 PO 0935 Amlodipine Besylate 10 MG DAILY 09/13 1000 AC 09/14 PO 0935 Atorvastatin Calcium 40 MG 1700 09/13 1700 AC 09/13 PO 1622 Azithromycin 500 MG DAILY 09/13 1000 AC 09/14 Dextrose/Water 250 ML IV 0939 Dabigatran 150 MG BID 09/13 1000 AC 09/14 PO 0935 Furosemide 20 MG DAILY 09/13 1000 DC 09/14 PO 0935 Melatonin 5 MG AT BEDTIME 09/130 AC 09/13 PO 2225 Metoprolol Succinate 100 MG DAILY 09/13 1000 AC 09/13 PO 1231 Nicotine 21 MG DAILY 09/13 1000 AC 09/14 TOP 0935 Ondansetron HCl 4 MG Q6P PRN 09/13 0545 AC IV Oxycodone/ 2 TAB Q6P PRN 09/13 0545 AC Acetaminophen PO Prednisone 40 MG DAILY 09/14 1000 AC 09/14 PO 0935 Last 24 Hrs of Lab/Aureliano Results Last 24 Hrs of Labs/Mics: Laboratory Tests 09/14/17 0650: Anion Gap 14, Estimated GFR 29 L, BUN/Creatinine Ratio 25.0, CBC w Diff NO MAN DIFF REQ, RBC 3.55 L, MCV 93.9, MCH 31.3 H, RDW 14.6 H, MPV 8.9, Gran % 90.8 H, Lymphocytes % 4.3 L, Monocytes % 4.9, Eosinophils % 0, Basophils % 0, Absolute Granulocytes 9.8 H, Absolute Lymphocytes 0.5 L, Absolute Monocytes 0.5, Absolute Eosinophils 0, Absolute Basophils 0, PUBS MCHC 33.4 09/13/17 1500: Troponin I 0.01 Assessment/Plan Assessment: This is a 71-year-old male w/ PMH significant for CAD status post [place] at age 39, with history of bypass and stents, vasculopathy status post right lower extremity stent and bilateral CEA, atrial fibrillation on NOAC, hypertension, and hyperlipidemia, who comes in for chief complaint of shortness of breath. Vitals: 97.3, heart rate 53-54, respiratory rate 20-24, blood pressure 130/58 to 173/72, satting 88-95%. Pertinent labs leukocytosis 11.1, hemoglobin 13, platelets normal, creatinine 1.9, proBNP 4530, troponin normal. Chest x-ray findings suggestive of interstitial edema. EKG atrial fibrillation, rate 73, premature ventricular complexes. - Acute on chronic CHF Patient shortness of breath is likely multifactorial. It sounds like he has an acute on top of a chronic shortness of breath. Differential diagnosis favoring acute shortness of breath includes worsening CHF, superimposed viral illness, COPD exacerbation. His chronic SOB could be 2/2 to HF, COPD, Amiodarone assoc pulm sfx. BNP 4530. * Admitted to telemetry floor for management of heart failure * Given his elevated proBNP, crackles, JVD on exam, chest x-ray findings of interstitial edema , highly suspicious for acute on chronic heart failure * Patient received 20 mg Lasix in the hospital however because of acute worsening of creatinine Lasix was stopped. 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 Lazcano was consulted, please follow cardiology recommendations * Will get records from his cardiology office Questionable COPD exacerbation and acute bronchitis Patient has extensive smoking history for 60 years. He is still smoking. Never followed up with any pens and pencils dipper. Not sure about COPD history. However given his wheezing, recent sick contact exposure, upper respiratory tract infection, shortness of breath, cough will treat him for acute bronchitis and COPD exacerbation. * prednisone 40 daily. * Azithromycin 5 doses * The total respiratory care * Duonebs * Follow-up flu swab- neg * Patient needs outpatient pens and pencils dipper follow-up. Bradycardia: heart rate as low as 48 in ER. His EKG showed NSR with rate 52 initially. He says he does not have a known history of bradycardia, rather he usually has fast heart rate. He is on a beta irene and amiodarone. * Will continue home medication metoprolol with holding parameters. Elevated creatinine: Unsure of his baseline so don't know if this is CLAUDIO or CK D. Note that on September 11 patient had creatinine of 1.9. Suspect chronic. * Urine lytes-urine sodium 105, creatinine 33, potassium 29 * FeNa 4.3 * Hold lisinopril * Lasix on hold because of worsening creatinine 2.2 * Avoid NSAIDs and nephrotoxins * renal ultrasound- normal Atrial Fibrillation: Patient is in NSR at this time. * Continue amiodarone * Continue Pradaxa CAD: She has significant history of CAD and vasculopathy. * EKG and troponin 3- normal * Continue Lipitor 40 mg daily * Holding Toprol-XL 100 mg daily Hypertension: * Continue Norvasc DVT prophylaxis on Pradaxa Full code Heart healthy diet Problem List: 1. COPD exacerbation 2. Dyspnea 3. CHF (congestive heart failure) Pain Ratin Pain Location: n/a Pain Goal: Remain pain free Pain Plan: liz Tomorrow's Labs & Rationales: bep- the setting of worsening creatinine
[2017-09-14 08:58] LABS: GRANULOCYTE % 90.8 % (42.2-75.2)
--- NOTE | 2017-09-14 14:49 | ECHOCARDIOGRAM REPORT ---
SUNITHA MARIE Age: 72 : 1945 Gender: M Exam Date: 09/13/2017 19:30 Exam Location: [address] Ht (in): 62 Wt (lb): 150 BSA: 1.74 BP: 106 / 50 Ordering Physician: Sadie Perez MD Referring Physician: Sean Lazcano MD Technologist: Hien Murphy [facility] Room Number: 171 Indications: HEART FAILURE Rhythm: Sinus Technical Quality: Fair FINDINGS Left Ventricle Normal size left ventricle. Moderate concentric left ventricular hypertrophy. No obvious regional wall motion abnormalities. Normal left ventricular ejection fraction visually estimated at 60%. Restrictive filling pattern of the left ventricle for age (stage 3 diastolic dysfunction). Mildly increased resting left ventricular outflow tract velocity (1.3 m/s). Right Ventricle Normal right ventricular size and function. Right Atrium Normal right atrial size. Left Atrium Mild left atrial dilatation. Mitral Valve Mild mitral annular calcification. Mild subvalvular mitral calcification. Mitral valve mildly thickened. Mild mitral regurgitation. Aortic Valve Trileaflet aortic valve. Mild aortic sclerosis. No aortic valve stenosis. Mild aortic regurgitation. Tricuspid Valve Structurally normal tricuspid valve. Mild tricuspid regurgitation. Mild pulmonary hypertension. Right ventricular systolic pressure estimated to be elevated at 47 mmHg. Pulmonic Valve Pulmonic valve not well visualized, grossly normal. Trace pulmonic regurgitation. Pericardium No pericardial effusion. Great Vessels Normal size aortic root. Dilated inferior vena cava. CONCLUSIONS Normal size left ventricle. Moderate concentric left ventricular hypertrophy. Normal left ventricular ejection fraction visually estimated at 60%. Restrictive filling pattern of the left ventricle for age (stage 3 diastolic dysfunction). Mildly increased resting left ventricular outflow tract velocity (1.3 m/s). Normal right ventricular size and function. Normal right atrial size. Mild left atrial dilatation. Mild mitral regurgitation. Mild aortic regurgitation. Mild tricuspid regurgitation. Mild pulmonary hypertension. Trace pulmonic regurgitation. Dilated inferior vena cava. Sean Lazcano M.D. (Electronically Signed) Final Date: 14 September 2017 14:48 MEASUREMENTS (Male / Female) Normal Values 2D ECHO LV Diastolic Diameter PLAX 4.4 cm 4.2 - 5.9 / 3.9 - 5.3 cm LV Systolic Diameter PLAX 2.8 cm 2.1 - 4.0 cm LV Fractional Shortening PLAX 36.4 % 25 - 46 % LV Ejection Fraction 2D Teich 66.3 % IVS Diastolic Thickness 1.5 cm LVPW Diastolic Thickness 1.5 cm LV Relative Wall Thickness 0.7 RV Internal Dim ED PLAX 3.0 cm 1.9 - 3.8 cm LVOT Diameter 1.9 cm Aortic Root Diameter 3.4 cm LA Systolic Diameter LX 4.6 cm 3.0 - 4.0 / 2.7 - 3.8 cm LA Volume 56.0 cm 18 - 58 / 22 - 52 cm Ascending Aorta Diameter 3.3 cm DOPPLER AV Peak Velocity 133.0 cm/s AV Peak Gradient 7.1 mmHg AV Mean Velocity 97.7 cm/s AV Mean Gradient 4.0 mmHg AV Velocity Time Integral 36.4 cm LVOT Peak Velocity 130.0 cm/s LVOT Peak Gradient 6.8 mmHg LVOT Mean Velocity 87.7 cm/s LVOT Mean Gradient 4.0 mmHg LVOT Velocity Time Integral 32.0 cm LVOT Stroke Volume 90.7 cm AV Area Cont Eq vti 2.5 cm AV Area Cont Eq pk 2.8 cm MV Peak Velocity 112.0 cm/s MV Peak Gradient 5.0 mmHg MV Mean Velocity 50.0 cm/s MV Mean Gradient 1.0 mmHg Mitral E Point Velocity 107.0 cm/s Mitral A Point Velocity 34.6 cm/s Mitral E to A Ratio 3.1 MV PHT Velocity 119.0 cm/s MV Deceleration Holt 674.0 cm/s MV Pressure Half Time 53.0 ms MV Area PHT 4.2 cm MV Deceleration Time 134.0 ms TR Peak Velocity 322.0 cm/s TR Peak Gradient 41.5 mmHg Right Atrial Pressure 5.0 mmHg Pulmonary Artery Systolic Pressu 46.5 mmHg Right Ventricular Systolic Press 46.5 mmHg PV Peak Velocity 100.0 cm/s PV Peak Gradient 4.0 mmHg PV Mean Velocity 70.8 cm/s PV Mean Gradient 2.0 mmHg PV Velocity Time Integral 24.3 cm LV E' Lateral Velocity 6.7 cm/s Mitral E to LV E' Lateral Ratio 15.9 LV E' Septal Velocity 4.3 cm/s Mitral E to LV E' Septal Ratio 24.9
[2017-09-14 14:51] VITALS: BP 122/62
--- NOTE | 2017-09-14 15:23 | Cons- Cardiology ---
General Information and HPI Consulting Request Date of Consult: 09/14/17 Requested By: Nieves Peoples MD Reason for Consult: Shortness of breath. Source of Information: patient, old records Exam Limitations: no limitations History of Present Illness: Mr. Peter Velazquez is a 72-year-old male with a history of continued heavy tobacco use (1/2-3/4 ppd x 50 yrs), COPD, hypertension, hyperlipidemia, peripheral vascular disease (s/p subclavian stents x 2 in 2009, s/p left lower extremity stent pleacement for ischemic foot x 2 in 2016, s/p bilateral carotid endarterectomies [right 2000; left 2015]), coronary artery disease (s/p NM s/p ~ 1984, UA s/p failed PCI ~1986; UA s/p CABG x 2 ~1997; + stress s/p stent LM ~ 2016), atrial fibrillation on the direct thrombin inhibitor dabigatran and amiodarone, and previous stroke who presented to the ED 09/13/2017 with worsening productive cough and shortness of breath. Mr. Velazquez admits to a 2 month history of shortness of breath that recently worsened. He states that he experiences intermittent chest tightness and when this occurs he feels as though he is unable to breathe, along with worsening cough and sputum production. He was seen in the ER on 09/11/2017 with similar complaints and was discharged home on prednisone and antibiotics which he has been taking without any relief. He denies any fevers feelings but does admit to occasional chills. He also admits to occasional palpitations, described as skipped beats. He denies any insertional chest discomfort, orthopnea, PND, worsening lower extremity edema or weight gain. He reportedly had an extensive evaluation for his shortness of breath at [facility] in April 2017 the results of which are not presently available. Allergies/Medications Allergies: Coded Allergies: Sulfa (Sulfonamide Antibiotics) (HIVES 09/11/17) Home Med List: Amiodarone HCl 200 MG TABLET 1 TAB PO DAILY HEART (Reported) Amlodipine Besylate 10 MG TABLET 1 TAB PO DAILY BP (Reported) Atorvastatin Calcium 40 MG TABLET 1 TAB PO DAILY CHOLESTEROL (Reported) Dabigatran Etexilate Mesylate (Pradaxa 150 MG) 150 MG CAPSULE 1 CAP PO BID BLOOD THINNER (Reported) Enalapril Maleate 20 MG TABLET 1 TAB PO DAILY BP (Reported) Metoprolol Succinate 100 MG TAB.ER.24H 1 TAB PO DAILY HEART/BP (Reported) Review of Systems Review of Systems: A 14 point system review was obtained and was noncontributory, other than as above. 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 Home Who Do You Live With? spouse Smoking Status: Current Everyday Smoker ETOH Use: occasional use Illicit Drug Use: denies illicit drug use Functional Ability ADLs Independent: dressing, eating, toileting, bathing. Ambulation: independent Exam & Diagnostic Data Vital Signs and I&O Vital Signs Date Time Temp Pulse Resp B/P B/P Pulse O2 O2 Flow FiO2 Mean Ox Delivery Rate 09/14 1600 Nasal 2.0L Cannula 09/14 1451 97.1 46 20 122/62 91 Room Air 09/14 1435 93 Nasal 2.0L Cannula 09/14 0935 49 120/66 09/14 0935 51 120/66 09/14 0739 97.6 46 20 120/66 91 Nasal Cannula 09/14 0000 90 Nasal 2.0L Cannula 09/13 2200 98.1 49 20 112/62 90 Nasal 2.0L Cannula 09/13 1902 98.3 54 22 108/54 88 Room Air Intake & Output 09/14 1600 09/14 0800 09/14 0000 09/13 1600 09/13 0800 09/13 0000 Intake Total 700 150 240 870 Output Total 450 225 625 300 Balance 250 150 15 245 -300 Intake, IV 250 270 Intake, Oral 450 150 240 600 Number 0 Bowel Movements Output, Urine 450 225 625 300 Patient 150 lb Weight Weight Reported by Patient Measurement Method Physical Exam: Well-developed, well-nourished elderly male no acute distress with nasal oxygen in place. Vital signs: See above. HEENT: Normocephalic, atraumatic, EOMI, moist mucous membranes. Neck: No JVD, bilateral carotid bruits. Lungs: Decreased breath sounds bilaterally. Heart: S1, S2 with grade 2-3/6 systolic murmur best heard near the base. No gallop or rub appreciated. PMI fifth ICS at [facility]. Abdomen: Soft, nontender, positive bowel sounds. Extremities: No edema. Labs/Aureliano Results: Laboratory Tests 09/14 09/13 09/13 0650 1500 0830 Chemistry Sodium (137 - 145 mmol/L) 138 Cancelled Potassium (3.5 - 5.1 mmol/L) 5.3 H Cancelled Chloride (98 - 107 mmol/L) 106 Cancelled Carbon Dioxide (22 - 30 mmol/L) 18 L Cancelled Anion Gap (5 - 16) 14 Cancelled BUN (9 - 20 mg/dL) 55 H Cancelled Creatinine (0.7 - 1.2 mg/dL) 2.2 H Cancelled Estimated GFR (>60 ml/min) 29 L BUN/Creatinine Ratio (7 - 25 %) 25.0 Cancelled Troponin I (<0.11 ng/ml) 0.01 Hematology CBC w Diff NO MAN DIFF REQ WBC (4.8 - 10.8 /CUMM) 10.8 RBC (4.70 - 6.10 /CUMM) 3.55 L Hgb (14.0 - 18.0 G/DL) 11.1 L Hct (42 - 52 %) 33.3 L MCV (80.0 - 94.0 FL) 93.9 MCH (27.0 - 31.0 PG) 31.3 H RDW (11.5 - 14.5 %) 14.6 H Plt Count (130 - 400 /CUMM) 246 MPV (7.4 - 10.4 FL) 8.9 Gran % (42.2 - 75.2 %) 90.8 H Lymphocytes % (20.5 - 51.1 %) 4.3 L Monocytes % (1.7 - 9.3 %) 4.9 Eosinophils % (0 - 5 %) 0 Basophils % (0.0 - 2.0 %) 0 Absolute Granulocytes (1.4 - 6.5 /CUMM) 9.8 H Absolute Lymphocytes (1.2 - 3.4 /CUMM) 0.5 L Absolute Monocytes (0.10 - 0.60 /CUMM) 0.5 Absolute Eosinophils (0.0 - 0.7 /CUMM) 0 Absolute Basophils (0.0 - 0.2 /CUMM) 0 PUBS MCHC (33.0 - 37.0 G/DL) 33.4 09/13 09/13 0830 0810 Chemistry Sodium (137 - 145 mmol/L) 141 Potassium (3.5 - 5.1 mmol/L) 5.0 Chloride (98 - 107 mmol/L) 107 Carbon Dioxide (22 - 30 mmol/L) 19 L Anion Gap (5 - 16) 15 BUN (9 - 20 mg/dL) 37 H Creatinine (0.7 - 1.2 mg/dL) 1.9 H Estimated GFR (>60 ml/min) 35 L BUN/Creatinine Ratio (7 - 25 %) 19.5 Troponin I (<0.11 ng/ml) 0.02 TSH (0.270 - 4.200 uIU/mL) 2.720 Free T4 (0.78 - 2.44 ng/dL) 2.42 Hematology CBC w Diff NO MAN DIFF REQ WBC (4.8 - 10.8 /CUMM) 7.8 RBC (4.70 - 6.10 /CUMM) 4.01 L Hgb (14.0 - 18.0 G/DL) 12.3 L Hct (42 - 52 %) 37.5 L MCV (80.0 - 94.0 FL) 93.6 MCH (27.0 - 31.0 PG) 30.6 RDW (11.5 - 14.5 %) 14.6 H Plt Count (130 - 400 /CUMM) 295 MPV (7.4 - 10.4 FL) 8.8 Gran % (42.2 - 75.2 %) 94.7 H Lymphocytes % (20.5 - 51.1 %) 4.7 L Monocytes % (1.7 - 9.3 %) 0.4 L Eosinophils % (0 - 5 %) 0 Basophils % (0.0 - 2.0 %) 0.2 Absolute Granulocytes (1.4 - 6.5 /CUMM) 7.3 H Absolute Lymphocytes (1.2 - 3.4 /CUMM) 0.4 L Absolute Monocytes (0.10 - 0.60 /CUMM) 0 L Absolute Eosinophils (0.0 - 0.7 /CUMM) 0 Absolute Basophils (0.0 - 0.2 /CUMM) 0 PUBS MCHC (33.0 - 37.0 G/DL) 32.7 L Urines Urine Color (YEL,AMB,STR) YEL Urine Clarity (CLEAR) CLEAR Urine pH (5.0 - 8.0) 6.0 Ur Specific [place] (1.001 - 1.035) 1.025 Urine Protein (NEG,<30 MG/DL) 100 H Urine Ketones (NEG) NEG Urine Nitrite (NEG) NEG Urine Bilirubin (NEG) NEG Urine Urobilinogen (0.1 - 1.0 EU/dl) 0.2 Ur Leukocyte Esterase (NEG) NEG Ur Microscopic SEDIMENT EXAMINED Urine RBC (0 - 5 /HPF) RARE Urine WBC (0 - 2 /HPF) 1-3 H Urine Bacteria (NEG/NONE) RARE H Urine Hemoglobin (NEG) NEG Urine Glucose (N MG/DL) NEG 09/13 09/13 0810 0209 Chemistry Sodium (137 - 145 mmol/L) 139 Potassium (3.5 - 5.1 mmol/L) 5.0 Chloride (98 - 107 mmol/L) 106 Carbon Dioxide (22 - 30 mmol/L) 20 L Anion Gap (5 - 16) 13 BUN (9 - 20 mg/dL) 37 H Creatinine (0.7 - 1.2 mg/dL) 1.9 H Estimated GFR (>60 ml/min) 35 L BUN/Creatinine Ratio (7 - 25 %) 19.5 Glucose (65 - 99 mg/dL) 96 Calcium (8.4 - 10.2 mg/dL) 9.3 Total Bilirubin (0.2 - 1.3 mg/dL) 0.8 AST (17 - 59 U/L) 33 ALT (21 - 72 U/L) 34 Alkaline Phosphatase (< 127 U/L) 114 Troponin I (<0.11 ng/ml) 0.03 [id number] Pept (<125 pg/mL) 4530 H Total Protein (6.3 - 8.2 g/dL) 7.7 Albumin (3.5 - 5.0 g/dL) 4.1 Globulin (1.9 - 4.2 gm/dL) 3.6 Albumin/Globulin Ratio (1.1 - 2.2 %) 1.1 Coagulation PT (9.4 - 12.5 SEC) 17.8 H INR (0.90 - 1.17) 1.70 H APTT (25 - 37 SEC) 75 H Hematology CBC w Diff NO MAN DIFF REQ WBC (4.8 - 10.8 /CUMM) 11.1 H RBC (4.70 - 6.10 /CUMM) 4.35 L Hgb (14.0 - 18.0 G/DL) 13.7 L Hct (42 - 52 %) 40.6 L MCV (80.0 - 94.0 FL) 93.2 MCH (27.0 - 31.0 PG) 31.5 H RDW (11.5 - 14.5 %) 15.1 H Plt Count (130 - 400 /CUMM) 339 MPV (7.4 - 10.4 FL) 8.8 Gran % (42.2 - 75.2 %) 73.2 Lymphocytes % (20.5 - 51.1 %) 14.6 L Monocytes % (1.7 - 9.3 %) 8.9 Eosinophils % (0 - 5 %) 1.9 Basophils % (0.0 - 2.0 %) 1.4 Absolute Granulocytes (1.4 - 6.5 /CUMM) 8.1 H Absolute Lymphocytes (1.2 - 3.4 /CUMM) 1.6 Absolute Monocytes (0.10 - 0.60 /CUMM) 1.0 H Absolute Eosinophils (0.0 - 0.7 /CUMM) 0.2 Absolute Basophils (0.0 - 0.2 /CUMM) 0.2 PUBS MCHC (33.0 - 37.0 G/DL) 33.8 Urines Ur Random Creatinine (mg/dL) 33.1 Ur Random Sodium (30 - 90 mmol/L) 105 H Ur Random Potassium (mmol/L) 29.1 Fraction Sodium Excret (<1% %) 4.3 H Diagnostic Data EKG Results EKG 09/13/2017: Sinus rhythm, ventricular bigeminy, 1 AV block, LPFB, RBBB, & nondiagnostic lateral/high lateral T-wave abnormalities. Slower rate and rhythm change from atrial fibrillation to sinus rhythm since previous tracing. CXR Results CXR 09/13/2017: Lung volumes are symmetric. There is redemonstrated interstitial prominence and Sia B-lines, suspicious for interstitial edema which is similar in appearance to prior. No definite consolidation is identified. No pneumothorax is seen. Trace pleural effusions cannot be excluded. The cardiac silhouette remains prominent. Calcification is present at the aortic arch. No acute osseous findings are seen. Other Results Renal ultrasound 09/13/2017: 1. Nonobstructing mid left renal calcification. 2. No other renal calculi. 3. Bladder grossly unremarkable. 4. Mildly enlarged and heterogeneous prostate gland. Assessment/Plan Assessment/Plan [id number] w/ hx of heavy tobacco use, COPD, HTN, HLD, PVD, CAD, PAF w/ AC & amio, previous CVA who presented to the ED 09/13/2017 with worsening productive cough and SOB w/ CXR c/w HF, elevated NT-PRO BNP, etc., but with no evidence of myocardial necrosis. Suspect that the AECOPD tipped him into a degree of HFpEF and would continue to treat for both conditions. Fortunately, he is back in sinus rhythm so this should help with management of his HFpEF. Recommendations: * Continue on telemetry, repeat ECG in a.m. * Discontinue concomitant use of amiodarone and azithromycin, as the azithromycin may enhance the QTc prolonging effect of amiodarone and should be avoided. * Additionally, azithromycin can enhance the myopathic effects of atorvastatin with the potential for rhabdomyolysis and should be avoided. * Finally, azithromycin can increase the concentration of the active metabolite of dabigatran and a dosage reductions may be required. Again, would avoid the use of azithromycin in this patient. * As we suspect there is a degree of HFpEF, would diuresis more aggressively with close attention to his renal function. Would give IV furosemide 40 mg 1 and reassess the need for further IV diuresis in the a.m. * Repeat CXR in a.m. * Continue the direct thrombin inhibitor for AC given his PAF & significantly elevated [id number] Score of 7 (HF, HTN, age 72 yrs, DM, CVA [2 pts], vasc dz) . * Consider pulmonary consultation for his AECOPD and for now continue TRC/02, steroids, & change antimicrobial therapy. * DVT prophylaxis being addressed w/ AC for his PAF. * Attempt to get the old records from [facility]. Further recommendations will follow, Thank you. Consult Acknowledgment - Thank you for your consult request.
[2017-09-14 22:00] VITALS: BP 136/70
[2017-09-15 06:00] VITALS: BP 146/88
--- NOTE | 2017-09-15 07:29 | PN- Housestaff ---
Jason Fam 09/15/17 0729: Subjective Follow-up For: Acute on chronic CHF COPD exacerbation Acute bronchitis CKD History of A. fib Complaints: no complaints Tele-Events Since Last Visit: Sinus bradycardia, sinus rhythm, 40-49, Subjective: Patient was seen and examined. He is alert awake and oriented to time place and person. No acute events noticed overnight. Denied any sob, cough, sputum production. No fever, chills. He denies any chest pain or tightness, palpitations, abdominal pain, nausea, vomiting or flank pain. Urine output was adequate. No urinary symptoms. Vitals stable, afebrile, heart rate 45, respiratory rate 18, blood pressure 120/ 70, saturating at 93 on ra. Review of Systems Constitutional: Reports: see HPI. Objective Last 24 Hrs of Vital Signs/I&O Vital Signs Date Time Temp Pulse Resp B/P B/P Pulse O2 O2 Flow FiO2 Mean Ox Delivery Rate 09/15 1029 94 Room Air Room Air 09/15 1009 69 134/58 09/15 1009 69 134/58 09/15 1009 69 134/58 09/15 0800 Nasal 2.0L Cannula 09/15 0600 97.9 52 18 146/88 91 09/15 0000 Nasal 2.0L Cannula 09/14 2200 97.5 50 16 136/70 91 Nasal 2.0L Cannula 09/14 1600 Nasal 2.0L Cannula 09/14 1451 97.1 46 20 122/62 91 Room Air 09/14 1435 93 Nasal 2.0L Cannula Intake & Output 09/15 1600 09/15 0800 09/15 0000 Intake Total 600 100 880 Output Total 600 1000 Balance 0 100 -120 Intake, Oral 600 100 880 Number 1 Bowel Movements Output, Urine 600 1000 Physical Exam General Appearance: Alert, Oriented X3, Cooperative, No Acute Distress Other Physical Findings: HEENT: Pupils equal and reactive. EOMI Cardiovascular: Nml s1/s2; no murmurs, bradycardia. No S3 appreciated. +JVD Skin: no erythema, rash or wounds present. Respiratory:He had diminished breath sounds with slight wheezes at bases. There were some crackles and rhonchi present as well. GI: BSX4, No tenderness on palpation. EXT: 2+ pitting edema. he has healing ulcers on l. great toe. R. great toe with some chronic changes. Good palpable pulses bilat LE. Current Medications: Current Medications Sig/Sameera Start time Last Medication Dose Route Stop Time Status Admin Acetaminophen 650 MG Q6P PRN 09/13 0545 AC PO Acetaminophen 1,000 MG Q6P PRN 09/13 0545 AC IV Albuterol Sulfate 3 ML BID 09/14 2200 AC 09/15 INH 1028 Albuterol Sulfate 3 ML Q6P PRN 09/13 1500 AC INH Amiodarone HCl 200 MG DAILY 09/13 1000 AC 09/15 PO 1009 Amlodipine Besylate 10 MG DAILY 09/13 1000 AC 09/15 PO 1009 Atorvastatin Calcium 40 MG 1700 09/13 1700 AC 09/14 PO 1624 Azithromycin 500 MG DAILY 09/13 1000 DC 09/14 Dextrose/Water 250 ML IV 0939 Dabigatran 150 MG BID 09/13 1000 AC 09/15 PO 1009 Furosemide 20 MG ONCE ONE 09/15 1000 DC 09/15 IV 09/15 1001 1008 Furosemide 40 MG ONCE ONE 09/15 0530 CAN IV 09/15 0531 Melatonin 5 MG AT BEDTIME 09/13 2200 AC 09/14 PO 2149 Metoprolol Succinate 100 MG DAILY 09/13 1000 AC 09/15 PO 1009 Nicotine 21 MG DAILY 09/13 1000 AC 09/15 TOP 1008 Ondansetron HCl 4 MG Q6P PRN 09/13 0545 AC IV Oxycodone/ 2 TAB Q6P PRN 09/13 0545 AC Acetaminophen PO Prednisone 40 MG DAILY 09/14 1000 AC 09/15 PO 1009 Last 24 Hrs of Lab/Aureliano Results Last 24 Hrs of Labs/Mics: Laboratory Tests 09/15/17 0605: Anion Gap 12, Estimated GFR 31 L, BUN/Creatinine Ratio 28.6 H 09/14/17 2237: Troponin I 0.02 Assessment/Plan Assessment: This is a 71-year-old male w/ PMH significant for CAD status post [place] at age 39, with history of bypass and stents, vasculopathy status post right lower extremity stent and bilateral CEA, atrial fibrillation on NOAC, hypertension, and hyperlipidemia, who comes in for chief complaint of shortness of breath. Vitals: 97.3, heart rate 53-54, respiratory rate 20-24, blood pressure 130/58 to 173/72, satting 88-95%. Pertinent labs leukocytosis 11.1, hemoglobin 13, platelets normal, creatinine 1.9, proBNP 4530, troponin normal. Chest x-ray findings suggestive of interstitial edema. EKG atrial fibrillation, rate 73, premature ventricular complexes. - Acute on chronic CHF Patient shortness of breath is likely multifactorial. It sounds like he has an acute on top of a chronic shortness of breath. Differential diagnosis favoring acute shortness of breath includes worsening CHF, superimposed viral illness, COPD exacerbation. His chronic SOB could be 2/2 to HF, COPD, Amiodarone assoc pulm sfx. BNP 4530. * Admitted to telemetry floor for management of heart failure * Given his elevated proBNP, crackles, JVD on exam, chest x-ray findings of interstitial edema , highly suspicious for acute on chronic heart failure * IV Lasix 20 mg today. We will discharge him on 20 oral Lasix daily. * Creatinine was maintained at 2.1 on Lasix. Baseline creatinine was 1.9. * Echocardiogram showed stage III diastolic heart failure * Monitor on telemetry * EKG and troponins ruled out ACS given his extensive cardiac history * He follows hat and cap sewer at [facility] * Dr. aLzcano was consulted Questionable COPD exacerbation and acute bronchitis Patient has extensive smoking history for 60 years. He is still smoking. Never followed up with any emergency dept tech. Not sure about COPD history. However given his wheezing, recent sick contact exposure, upper respiratory tract infection, shortness of breath, cough will treat him for acute bronchitis and COPD exacerbation. * prednisone 40 daily. We will continue prednisone slow taper. * Azithromycin 2 doses so far, however it was stopped because of prolonged QT interval as the patient is on amiodarone, statin, Already which may prolong QT interval * The total respiratory care * Duonebs * Follow-up flu swab- neg * Patient needs outpatient emergency dept tech follow-up. Bradycardia: heart rate as low as 48 in ER. His EKG showed NSR with rate 52 initially. He says he does not have a known history of bradycardia, rather he usually has fast heart rate. He is on a beta irene and amiodarone. * Will continue home medication metoprolol with holding parameters. Elevated creatinine: Unsure of his baseline so don't know if this is CLAUDIO or CK D. Note that on September 11 patient had creatinine of 1.9. Suspect chronic. * Urine lytes-urine sodium 105, creatinine 33, potassium 29 * FeNa 4.3 * Creatinine was maintained at 2.1,despite on Lasix. * Avoid NSAIDs and nephrotoxins * renal ultrasound- normal Atrial Fibrillation: Patient is in NSR at this time. * Continue amiodarone * Continue Pradaxa CAD: She has significant history of CAD and vasculopathy. * EKG and troponin 3- normal * Continue Lipitor 40 mg daily * Holding Toprol-XL 100 mg daily Hypertension: * Continue Norvasc DVT prophylaxis on Pradaxa Full code Heart healthy diet Problem List: 1. CHF (congestive heart failure) Pain Ratin Pain Location: n/a Pain Goal: Remain pain free Pain Plan: n/a Tomorrow's Labs & Rationales: none Jose Mcgowan MD 09/15/17 1139: Attending MD Review Statement Attending Statement Attending MD Statement: examined this patient, discuss w/resident/PA/COMMERCIAL ASSISTANT, agreed w/resident/PA/COMMERCIAL ASSISTANT, reviewed EMR data (avail), discussed with nursing, discussed with case mgmt, amended to note Attending Assessment/Plan: Patient seen and examined. Resting comfortably much in acute distress. No events on telemetry monitoring overnight. He did complain of chest pain. Cardiac enzymes were drawn again continue to be negative. He is afebrile and hemodynamically stable. He was on oxygen supplementation overnight however this morning he was saturating 94% on room air at rest and 94% with ambulation. Denies chest pain. Denies shortness of breath at present. Denies palpitations. On examination he has no jugular venous distention. Heart sounds are regular. He has good entry bilaterally lungs are clear to auscultation. Abdomen soft and nontender. He has no peripheral edema. Problems: 1. Acute hypoxic respiratory failure. 2. Acute on chronic diastolic heart failure. 3. Bronchitis likely secondary to COPD exacerbation. 4. Chronic kidney disease. 5. Atrial fibrillation on anticoagulation with Pradaxa. Recommendations: -Patient is currently doing well off oxygen supplementation. -Recommend bronchodilator therapy with albuterol upon discharge. Also recommend that patient should be referred by his primary care provider to emergency dept tech for pulmonary function testing. -He will be discharged on a prednisone taper as well. -For his chronic diastolic heart failure we will discharge patient on Lasix 20 g orally daily. Patient admits to being on Lasix previously in the past but took himself off the medication. We offered referral to the CHF clinic here at [facility] however patient repeatedly declined this and wants to follow-up with his hat and cap sewer service at [facility]. -For his atrial fibrillation he will continue on his amiodarone and metoprolol for rate control. He will also continue on Pradaxa for anticoagulant therapy. He will follow-up with his hat and cap sewer regarding any changes of his anticoagulant therapy. He states that he will be switching cardiology services but does not want referral to cardiology services here at [facility]. He wants to follow-up with cardiology services at [facility].
[2017-09-15 10:09] VITALS: BP 134/58
[2017-09-15] MEDS ORDERED: PREDNISONE10 M2 PO (10:24)
[2017-09-15] MEDS ORDERED: VENTOLIN HFA18 GM INH (10:24)
[2017-09-15] MEDS ORDERED: LASIX20 M1 PO (10:24)
--- NOTE | 2017-09-15 14:18 | Discharge Summary ---
Visit Information Visit Dates Admission Date: 09/13/17 Discharge Date: 09/15/2017 Hospital Course Course Attending Physician: Nieves Peoples MD Primary Care Physician: Ricky Bradley MD Consulting Request: Consulting Specialty: Cardiology Hospital Course: This is a 71-year-old male w/ PMH significant for CAD status post [place] at age 39, with history of bypass and stents, vasculopathy status post right lower extremity stent and bilateral CEA, atrial fibrillation on NOAC, hypertension, and hyperlipidemia, who came in with chief complaint of shortness of breath. Vitals: 97.3, heart rate 53-54, respiratory rate 20-24, blood pressure 130/58 to 173/72, satting 88-95%. Pertinent labs leukocytosis 11.1, hemoglobin 13, platelets normal, creatinine 1.9, proBNP 4530, troponin normal. Chest x-ray findings suggestive of interstitial edema. EKG atrial fibrillation, rate 73, premature ventricular complexes. - Acute on chronic CHF Patient shortness of breath is likely multifactorial. He reported acute on chronic shortness of breath. He was admitted to the telemetry floor for management of acute worsening of chronic diastolic CHF and COPD exacerbation. Given his elevated proBNP, crackles, JVD on exam, chest x-ray findings of interstitial edema-he was treated for acute exacerbation of chronic diastolic heart failure. Received IV Lasix 20 mg daily with monitoring of creatinine. Echocardiogram showed preserved ejection fraction and stage III diastolic heart failure. 3 sets of troponin and EKG were negative, ruled out acute coronary syndrome. He was discharged on 20 mg Lasix daily. Advised to follow-up with his zigzag appliquer at [facility]. COPD exacerbation and acute bronchitis Patient has extensive smoking history for 60 years. He is still smoking. Never followed up with any card grader. Not sure about COPD history. However given his wheezing, recent sick contact exposure, upper respiratory tract infection, shortness of breath, cough we treated him for acute bronchitis and COPD exacerbation. He was given IV methylprednisolone for 2 days. He was discharged on prednisone tapering doses 40 for 2 days, 30 for 2 days, 20 for 2 days. He received azithromycin for 3 days in the hospital, however it was stopped because of prolonged QT interval as the patient is on amiodarone, statin, Already which may prolong QT interval. He received albuterol inhaler treatments. Flu was negative. He was advised to follow-up with card grader as an outpatient for pulmonary function tests. He was discharged on prednisone taper and albuterol inhaler. Bradycardia: His EKG showed NSR with rate 52 initially. He was on continuous mine promotor. He continued to have sinus rhythm, sinus bradycardia, asymptomatic. Heart rate varying between 50-60. He was continued on home medications metoprolol. CKD Patient has chronic kidney disease with baseline creatinine 1.9. CONFIRMED with his PCP office regarding chronic kidney disease. Admission creatinine was 1.9. Renal ultrasound was done which was normal, no hydroureteronephrosis, no obstruction. Urine lites were normal. FENa was 4.3. He was given IV Lasix 20 mg daily for acute heart failure. Creatinine remained stable at 2.1. Atrial Fibrillation: Patient is in NSR at this time. Continued amiodarone Continued Pradaxa CAD: He has significant history of CAD and vasculopathy. 3 sets of troponin and EKG were normal. He was continued on home medication Lipitor, brilinta, metoprolol daily. Hypertension: Continued Norvasc DVT prophylaxis on Pradaxa Full code Heart healthy diet Allergies: Coded Allergies: Sulfa (Sulfonamide Antibiotics) (HIVES 09/11/17) Pertinent Lab Results: Left Ventricle Normal size left ventricle. Moderate concentric left ventricular hypertrophy. No obvious regional wall motion abnormalities. Normal left ventricular ejection fraction visually estimated at 60%. Restrictive filling pattern of the left ventricle for age (stage 3 diastolic dysfunction). Mildly increased resting left ventricular outflow tract velocity (1.3 m/s). Right Ventricle Normal right ventricular size and function. Right Atrium Normal right atrial size. Left Atrium Mild left atrial dilatation. Mitral Valve Mild mitral annular calcification. Mild subvalvular mitral calcification. Mitral valve mildly thickened. Mild mitral regurgitation. Aortic Valve Trileaflet aortic valve. Mild aortic sclerosis. No aortic valve stenosis. Mild aortic regurgitation. Tricuspid Valve Structurally normal tricuspid valve. Mild tricuspid regurgitation. Mild pulmonary hypertension. Right ventricular systolic pressure estimated to be elevated at 47 mmHg. Pulmonic Valve Pulmonic valve not well visualized, grossly normal. Trace pulmonic regurgitation. Pericardium No pericardial effusion. Great Vessels Normal size aortic root. Dilated inferior vena cava. CONCLUSIONS Normal size left ventricle. Moderate concentric left ventricular hypertrophy. Normal left ventricular ejection fraction visually estimated at 60%. Restrictive filling pattern of the left ventricle for age (stage 3 diastolic dysfunction). Mildly increased resting left ventricular outflow tract velocity (1.3 m/s). Normal right ventricular size and function. Normal right atrial size. Mild left atrial dilatation. Mild mitral regurgitation. Mild aortic regurgitation. Mild tricuspid regurgitation. Mild pulmonary hypertension. Trace pulmonic regurgitation. Dilated inferior vena cava. ----- cxr FINDINGS: Lung volumes are symmetric. There is redemonstrated interstitial prominence and Sia B-lines, suspicious for interstitial edema which is similar in appearance to prior. No definite consolidation is identified. No pneumothorax is seen. Trace pleural effusions cannot be excluded. The cardiac silhouette remains prominent. Calcification is present at the aortic arch. No acute osseous findings are seen. IMPRESSION: Findings suspicious for interstitial edema, similar to 09/11/2017. ------- RIGHT KIDNEY: 9.1 x 4.4 x 4.4 cm (SAG x AP x TRV). The kidney is normal in size, contour, and echogenicity. Renal cortical thickness is normal. No calculi or focal parenchymal lesions. No hydronephrosis. LEFT KIDNEY: 11.2 x 6.2 x 4.0 cm (SAG x AP x TRV). The kidney is normal in size, contour, and echogenicity. Renal cortical thickness is normal. No focal parenchymal lesions. There is a nonobstructing 0.8 cm calcification in the mid left kidney. No hydronephrosis. BLADDER: Well-distended and normal. Bilateral ureteral jets are not demonstrated. Prevoid bladder volume is 234.3 mL. Postvoid bladder volume was not assessed since the patient was unable to void. OTHER: Prostate gland is partially imaged and appears mildly enlarged and heterogeneous, measuring 4 cm transversely. IMPRESSION: 1. Nonobstructing mid left renal calcification. 2. No other renal calculi. 3. Bladder grossly unremarkable. 4. Mildly enlarged and heterogeneous prostate gland. Disposition Summary Disposition Principal Diagnosis: Acute on chronic CHF COPD exacerbation Acute bronchitis CKD History of A. fib Additional Diagnosis: none Discharge Disposition: home or self care Discharge Instructions General Discharge Information Code Status: Full Code Patient's Diet: Heart healthy diet Patient's Activity: As tolerated Follow-Up Instructions/Appts: Please follow-up with PCP in one week after discharge. Please follow-up with your zigzag appliquer in 1 week after discharge Please follow-up with card grader in 1 week after discharge Medications at Discharge Discharge Medications: Continue taking these medications: Metoprolol Succinate (Metoprolol Succinate) 100 MG TAB.ER.24H 1 Tablet ORAL DAILY Qty = 90 Comments: Last Taken:09/15/17 Time:9am Amlodipine Besylate (Amlodipine Besylate) 10 MG TABLET 1 Tablet ORAL DAILY Qty = 90 Comments: Last Taken:09/15/17 Time:9am Enalapril Maleate (Enalapril Maleate) 20 MG TABLET 1 Tablet ORAL DAILY Qty = 90 Comments: held Amiodarone HCl (Amiodarone HCl) 200 MG TABLET 1 Tablet ORAL DAILY Qty = 90 Comments: Last Taken:09/15/17 Time:9am Atorvastatin Calcium (Atorvastatin Calcium) 40 MG TABLET 1 Tablet ORAL DAILY Qty = 90 Comments: Last Taken:09/14/17 Time:5pm Dabigatran Etexilate Mesylate (Pradaxa 150 MG) 150 MG CAPSULE 1 Capsule ORAL TWICE DAILY Qty = 180 Comments: Last Taken:09/15/17 Time:9am Start taking the following new medications: Albuterol Sulfate (Ventolin Hfa) 90 MCG HFA.AER.AD 2 Puff Inhale through mouth EVERY 4-6 HOURS NEEDED as needed for COPD, SOB Qty = 1 No Refills Comments: not taken, nebulizer treatments administerd in place Furosemide (Lasix) 20 MG TABLET 1 Tablet ORAL DAILY Qty = 30 No Refills Comments: Last Taken:09/15/17 Time:9am Prednisone (Prednisone) 10 MG TABLET 1 Tablet ORAL See Instructions Qty = 12 No Refills Instructions: TAKE 3 TABS FOR 2 DAYS TAKE 2 TABS FOR 2 DAYS TAKE 1 TAB FOR 2 DAYS Comments: Last Taken:09/15/17 Time:9am Copies To: Kirk STROUD,Ricky Capellan MD Review Statement Documenting Attending: Jose Mcgowan MD Other Findings: Discharged in stable condition.
== END 2017-09-15 14:45 | DRG 291 ==
LOC: ERH 01:47 → 1NO 03:28 → ERHI 03:28 → ENRESERV 05:01 → 1NO 06:08 → ENPENDDIS 09-15 11:43 → 1NO 09-15 14:45
PROVIDERS: Hospitalist; Pediatrics; Student in an Organized Health Care Education/Training Program
DX: I13.0 Hypertensive heart and chronic kidney disease with heart failure and stage 1 through stage 4 chronic kidney disease, or unspecified chronic kidney disease (principal); I50.31 Acute diastolic (congestive) heart failure; J44.0 Chronic obstructive pulmonary disease with (acute) lower respiratory infection; I73.9 Peripheral vascular disease, unspecified; I48.91 Unspecified atrial fibrillation; J44.1 Chronic obstructive pulmonary disease with (acute) exacerbation; N18.3 Chronic kidney disease, stage 3 (moderate); F17.200 Nicotine dependence, unspecified, uncomplicated; J20.9 Acute bronchitis, unspecified; E78.5 Hyperlipidemia, unspecified; I25.2 Old myocardial infarction; Z95.1 Presence of aortocoronary bypass graft; Z95.5 Presence of coronary angioplasty implant and graft; Z79.82 Long term (current) use of aspirin; Z79.01 Long term (current) use of anticoagulants; R00.1 Bradycardia, unspecified
CPT/HCPCS: 1NP; 84133; 84300; 36415; 71045; 76775; 81001; 82436; 82570; 87040; 87804; 87804-59; 93005; 93010; 93306; 96374; 96375; J0456; J0696; J1940; J2920; J2930; J3490; J7040; J7060; J7508